=== PATIENT | female | born 1970 | race Caucasian/White ===

== ENCOUNTER → 2017-08-04 | Outpatient (CLI) | payer OTHER ==
--- NOTE | 2017-08-04 12:45 | Diagnostic Imaging Report ---
INDICATION: Pelvic pain. TECHNIQUE: Multiple real-time grayscale images were obtained over the pelvis in various projections both transabdominally and endovaginally. FINDINGS: The uterus measures 5.5 x 3.8 x 2.6 cm. Endometrial thickness is 3 mm. There are no myometrial or endometrial masses. Neither ovary is visualized. There are no adnexal masses. There is no free pelvic fluid. IMPRESSION: Unremarkable pelvic ultrasound. Neither ovary is visualized. Dictated by: Dictated on workstation # [id number]
== END ==
LOC: RAD 09:37
PROVIDERS: ATTEND Nurse Practitioner Family
DX: R10.2 Pelvic and perineal pain (principal)
CPT/HCPCS: 76830; 76856

== ENCOUNTER → 2017-08-12 | Outpatient (CLI) | payer OTHER ==
--- NOTE | 2017-08-12 14:16 | Diagnostic Imaging Report ---
PROCEDURE: CT abdomen and pelvis without contrast. TECHNIQUE: Multiple contiguous axial images were obtained through the abdomen and pelvis without the use of intravenous contrast. INDICATION: Right back pain for several months, now with radiation to the front. CORRELATION STUDY: None. FINDINGS: LOWER THORAX: Clear. LIVER: 2.3 cm cyst in the anterior left lobe of the liver is slightly bigger from prior examination. An additional 14 mm low-density lesion centrally in the left lobe of the liver, slightly more prominent from prior study. Additional 7 mm indeterminate low-density lesion at the central aspect of the left lobe of the liver may be slight more prominent from prior study as well. Additional 6 mm low-density lesion posteriorly in the right lobe of the liver is present. Remainder of the liver demonstrates slight low attenuation, may be reflective of at least some degree of fatty infiltration. GALLBLADDER: Absent with clips in the fossa. SPLEEN: Unremarkable. PANCREAS: Unremarkable. ADRENAL GLANDS: Unremarkable. KIDNEYS: Normal configuration. No calcification or obstruction. ABDOMINAL AORTA: Unremarkable, nonaneurysmal. No pathologically enlarged central retroperitoneal lymph nodes. GASTROINTESTINAL TRACT: There are a few noninflamed colonic diverticula. Normal appendix sits inseparable from the distal small bowel and the right lower quadrant appears unremarkable but limited in evaluation. No abdominal ascites or free air. URINARY BLADDER: Relatively decompressed. REPRODUCTIVE: Uterus and adnexa appearing unremarkable. OSSEOUS STRUCTURES: No acute abnormality. IMPRESSION: 1. Negative for acute abnormality of the abdomen or pelvis. 2. Several low-density lesions within the liver. While some of these appear to represent probable simple cysts, some of these are not definitively characterized and were visualized on prior limited imaging through the liver on prior CT chest examination. Therefore, the possibility of underlying non benign hepatic lesion is difficult to exclude on this noncontrast study. Consideration for post contrast CT imaging with hepatic protocol recommended. 3. Cholecystectomy. Dictated by: Dictated on workstation # [id number]
== END ==
LOC: RAD 12:34
PROVIDERS: ATTEND Family Medicine
DX: K76.9 Liver disease, unspecified (principal); M54.89 Other dorsalgia; Z90.49 Acquired absence of other specified parts of digestive tract
CPT/HCPCS: 74176

== ENCOUNTER → 2017-08-19 | Outpatient (CLI) | payer OTHER ==
[~2017-08-19] MED LIST: CATHETER FLUSH 10 ML SYR IV PRN; IOHEXOL 350 MG/ML 100 ML (OMNIPAQUE 350) VIAL IV ONE; NS 100 ML (IVPB) BAG IV ONE
--- NOTE | 2017-08-19 14:25 | Diagnostic Imaging Report ---
PROCEDURE: CT chest without contrast. TECHNIQUE: Multiple contiguous axial images were obtained through the chest without the use of intravenous contrast. INDICATION: Followup pulmonary mass. Comparison is made with prior CT chest from 12/06/2015. No axillary lymphadenopathy is seen. Calcified lymph nodes in the AP window appear stable and consistent with prior granulomatous disease. There are calcified lymph nodes in left hilum as well, stable. No pericardial or pleural fluid is identified. Small area of nodularity along the major fissure on the left appears stable. The area of parenchymal nodularity with associated calcifications in the lingula appears stable. No new parenchymal abnormality is seen. The upper abdomen demonstrates multiple hepatic cysts. The dominant cyst anteriorly has increased in size measuring 2.2 cm compared with 1.7 cm. IMPRESSION: Overall stable CT of the chest when compared with examination from 12/06/2015 with the exception of a slightly enlarging cyst in the liver. Dictated by: Dictated on workstation # [id number]
--- NOTE | 2017-08-19 15:23 | Diagnostic Imaging Report ---
PROCEDURE: CT abdomen with and without contrast. TECHNIQUE: Multiple contiguous axial CT images of the abdomen were obtained prior to and after intravenous administration of iodinated contrast. INDICATION: Abdominal discomfort and right lower abdominal pain. COMPARISON: Comparison is made with prior CT from 08/12/2017. FINDINGS: There is generalized low density throughout the liver, consistent with hepatic steatosis. Well-defined low-density lesions within the liver are again noted, largest in segment IVB measuring 2.2 cm. All liver lesions do demonstrate water density and are suggestive of cysts. No abnormal enhancement is identified. The gallbladder is surgically absent. The pancreas and spleen are unremarkable. No adrenal mass is detected. The kidneys are unremarkable. The aorta is nonaneurysmal. No central retroperitoneal or mesenteric lymphadenopathy is seen. There is no ascites. The visualized bowel loops are normal in caliber. IMPRESSION: 1. Hepatic steatosis. 2. Findings suggestive of hepatic cysts. The study is otherwise unremarkable. Dictated by: Dictated on workstation # [id number]
== END ==
LOC: RAD 13:41
PROVIDERS: ATTEND Family Medicine
DX: K76.0 Fatty (change of) liver, not elsewhere classified (principal); R91.8 Other nonspecific abnormal finding of lung field
CPT/HCPCS: 71250; 74170

== ENCOUNTER → 2017-10-22 | Outpatient (CLI) | payer OTHER ==
--- NOTE | 2017-10-22 17:17 | Diagnostic Imaging Report ---
INDICATION: Routine screening. No prior mammograms are available for comparison. This is a baseline study. The current study was also evaluated with a Computer Aided Detection (CAD) system. FINDINGS: Scattered fibroglandular densities are identified bilaterally. No dominant mass or malignant-appearing microcalcifications are seen. The axillae are unremarkable. IMPRESSION: No mammographic features suspicious for malignancy are identified. ACR BI-RADS Category 1: Negative. Result letter will be mailed to the patient. Note: At least 10% of breast cancer is not imaged by mammography. Dictated by: Dictated on workstation # [id number]
== END ==
LOC: RAD 14:05
PROVIDERS: ATTEND Family Medicine
DX: Z12.31 Encounter for screening mammogram for malignant neoplasm of breast (principal)
CPT/HCPCS: 77067

== ENCOUNTER 2017-12-28 06:23 | Outpatient (CLI) | payer OTHER ==
[~2017-12-28] VITALS: Ht 157.5 cm; Wt 61.2 kg
[2017-12-28] MEDS ORDERED: METO-387 PO (15:15)
== END 2017-12-28 15:16 ==
LOC: PREOP 06:23
PROVIDERS: ATTEND Surgery
DX: Z01.818 Encounter for other preprocedural examination (principal); K52.9 Noninfective gastroenteritis and colitis, unspecified

== ENCOUNTER 2018-01-03 09:53 | Day surgery (SDC) | payer OTHER ==
[~2018-01-03] VITALS: Ht 157.5 cm; Wt 61.2 kg
[~2018-01-03 09:53] MED LIST changes: -CATHETER FLUSH 10 ML SYR IV PRN; -IOHEXOL 350 MG/ML 100 ML (OMNIPAQUE 350) VIAL IV ONE; +METO-387 PO; -NS 100 ML (IVPB) BAG IV ONE
--- OUTSIDE RECORDS SUMMARY | 2018-01-03 10:00 | XMS REPORT | Continuity of Care Document ---
Demographics Preferred Language Unknown Marital Status Unknown Jain Affiliation Unknown Race Unknown Ethnic Group Unknown Author Author [facility] Address Unknown Phone Unavailable Allergies Active Description Code Type Severity Reaction Onset Reported/Identified Relationship to Patient Clinical Status Yes No Allergy Information Available [id number] Drug Allergy Unknown N/A 2014 Yes No Known Drug Allergies [id number] Drug Allergy Unknown N/A 12/28/2017 Medications There is no data. Problems Date Dx Coded Attending Type Code Diagnosis Diagnosed By 01/02/2009 386.00 MENIERE'S DISEASE UNSPECIFIED 01/02/2009 465.9 Acute Upper Respiratory Infections Of Unspecified Site 01/02/2009 794.6 NONSPECIFIC ABNORMAL RESULTS OF OTHER ENDOCRINE FUNCTION STUDY 09/28/2009 461.9 Sinusitis Acute 12/10/2011 780.79 OTHER MALAISE AND FATIGUE 12/23/2011 780.52 INSOMNIA UNSPECIFIED 12/23/2011 784.0 HEADACHE 07/23/2014 Ot 786.59 07/23/2014 Ot 041.81 07/23/2014 Ot 786.2 07/23/2014 Ot 786.05 07/23/2014 Ot 780.4 07/23/2014 Ot 784.0 07/23/2014 Ot 784.59 08/27/2014 RUTHY TOLENTINO MD Ot 228.02 08/27/2014 RUTHY TOLENTINO MD Ot 784.0 08/30/2014 Ot 786.59 08/30/2014 Ot 041.81 08/30/2014 Ot 786.2 08/30/2014 Ot 786.05 08/30/2014 Ot 780.4 08/30/2014 Ot 784.0 08/30/2014 Ot 784.59 08/30/2014 RUTHY TOLENTINO MD Ot 228.02 08/30/2014 RUTHY TOLENTINO MD Ot 784.0 03/26/2015 Ot 786.59 03/26/2015 Ot 041.81 03/26/2015 Ot 786.2 03/26/2015 Ot 786.05 03/26/2015 Ot 780.4 03/26/2015 Ot 784.0 03/26/2015 Ot 784.59 03/26/2015 RUTHY TOLENTINO MD Ot 228.02 03/26/2015 RAJAN MCGRAW, RUTHY Selby Ot 784.0 03/26/2015 RAJAN MCGRAW, RUTHY Selby Ot 228.02 03/26/2015 RAJAN MCGRAW, RUTHY Bal Ot 784.0 04/23/2015 RUTHY TOLENTINO MD Ot 228.02 04/23/2015 RUTHY TOLENTINO MD Ot 784.0 08/13/2015 RUTHY TOLENTINO MD Ot 228.02 08/13/2015 RUTHY TOLENTINO MD Ot 784.0 09/04/2015 RUTHY TOLENTINO MD Ot 228.02 09/04/2015 RUTHY TOLENTINO MD Ot 784.0 10/14/2015 Ot 041.81 10/14/2015 Ot 786.2 10/14/2015 Ot 786.05 10/14/2015 Ot 780.4 10/14/2015 Ot 784.0 10/14/2015 Ot 784.59 10/14/2015 RUTHY TOLENTINO MD Ot 228.02 10/14/2015 RUTHY TOLENTINO MD Ot 784.0 10/28/2015 Ot 041.81 10/28/2015 Ot 786.2 10/28/2015 Ot 786.05 10/28/2015 Ot 780.4 10/28/2015 Ot 784.0 10/28/2015 Ot 784.59 10/28/2015 RUTHY TOLENTINO MD Ot 228.02 10/28/2015 RUTHY TOLENTINO MD Ot 784.0 10/29/2015 JAY JAY CHAPMAN MD Ot R09.89 12/10/2015 JIGAR MORALES DO Ot R91.8 OTHER NONSPECIFIC ABNORMAL FINDING OF MARIAN 12/11/2015 JAY JAY CHAPMAN MD Ot R09.89 OTH SYMPTOMS AND SIGNS INVOLVING THE CIR 07/29/2017 Ot 786.05 SHORTNESS OF BREATH 07/29/2017 Ot 780.4 DIZZINESS AND GIDDINESS 07/29/2017 Ot 784.0 HEADACHE 07/29/2017 Ot 784.59 OTHER SPEECH DISTURBANCE 07/29/2017 RUTHY TOLENTINO MD Ot 228.02 HEMANGIOMA INTRACRANIAL 07/29/2017 RUTHY TOLENTINO MD Ot 784.0 HEADACHE 07/29/2017 ARI MCGRAW, JAY JAY P Ot R09.89 OTH SYMPTOMS AND SIGNS INVOLVING THE CIR 07/29/2017 ORENDER DO, JIGAR S Ot R91.8 OTHER NONSPECIFIC ABNORMAL FINDING OF MARIAN 08/19/2017 Ot 786.05 SHORTNESS OF BREATH 08/19/2017 Ot 780.4 DIZZINESS AND GIDDINESS 08/19/2017 Ot 784.0 HEADACHE 08/19/2017 Ot 784.59 OTHER SPEECH DISTURBANCE 08/19/2017 RAJAN MCGRAW, RUTHY Selby Ot 228.02 HEMANGIOMA INTRACRANIAL 08/19/2017 RUTHY TOLENTINO MD Ot 784.0 HEADACHE 08/19/2017 ARI MCGRAW, JAY JAY P Ot R09.89 OTH SYMPTOMS AND SIGNS INVOLVING THE CIR 08/19/2017 ORENDER DO, JIGAR S Ot R91.8 OTHER NONSPECIFIC ABNORMAL FINDING OF MARIAN 08/19/2017 ZAHIRA PITT R FREIGHT [employer] Ot R10.2 PELVIC AND PERINEAL PAIN 08/19/2017 ORENDER DO, JIGAR S Ot K76.9 LIVER DISEASE, UNSPECIFIED 08/19/2017 ORENDER DO, JIGAR S Ot M54.89 OTHER DORSALGIA 08/19/2017 ORENDER DO, JIGAR S Ot Z90.49 ACQUIRED ABSENCE OF OTHER SPECIFIED PART 09/17/2017 ORENDER DO, JIGAR S Ot K76.0 FATTY (CHANGE OF) LIVER, NOT ELSEWHERE C 09/17/2017 ORENDER DO, JIGAR S Ot R91.8 OTHER NONSPECIFIC ABNORMAL FINDING OF MARIAN 10/13/2017 ZAHIRA PITT R [employer]REIGHT [employer] Ot R10.2 PELVIC AND PERINEAL PAIN 10/13/2017 ORENDER DO, JIGAR S Ot K76.9 LIVER DISEASE, UNSPECIFIED 10/13/2017 ORENDER DO, JIGAR S Ot M54.89 OTHER DORSALGIA 10/13/2017 ORENDER DO, JIGAR S Ot Z90.49 ACQUIRED ABSENCE OF OTHER SPECIFIED PART 10/14/2017 ZAHIRA PITT R FREIGHT [employer] Ot R10.2 PELVIC AND PERINEAL PAIN 10/14/2017 ORENDER DO, JIGAR S Ot K76.9 LIVER DISEASE, UNSPECIFIED 10/14/2017 ORENDER DO, JIGAR S Ot M54.89 OTHER DORSALGIA 10/14/2017 ORENDER DO, JIGAR S Ot Z90.49 ACQUIRED ABSENCE OF OTHER SPECIFIED PART 10/15/2017 YOANDY, ZAHIRA R FREIGHT [employer]TER Ot R10.2 PELVIC AND PERINEAL PAIN 10/15/2017 ORENDER DO, JIGAR S Ot K76.9 LIVER DISEASE, UNSPECIFIED 10/15/2017 ORENDER DO, JIGAR S Ot M54.89 OTHER DORSALGIA 10/15/2017 ORENDER DO, JIGAR S Ot Z90.49 ACQUIRED ABSENCE OF OTHER SPECIFIED PART 10/22/2017 Ot 780.4 DIZZINESS AND GIDDINESS 10/22/2017 Ot 784.0 HEADACHE 10/22/2017 Ot 784.59 OTHER SPEECH DISTURBANCE 10/22/2017 RAJAN MCGRAW, RUTHY Sleby Ot 228.02 HEMANGIOMA INTRACRANIAL 10/22/2017 RAJAN MCGRAW, RUTHY Selby Ot 784.0 HEADACHE 10/22/2017 ARI MCGRAW, JAY JAY Zhao Ot R09.89 OTH SYMPTOMS AND SIGNS INVOLVING THE CIR 10/22/2017 ORENDER DO, JIGAR S Ot R91.8 OTHER NONSPECIFIC ABNORMAL FINDING OF MARIAN 10/22/2017 ZAHIRA PITT [employer]REIGHT [employer] Ot R10.2 PELVIC AND PERINEAL PAIN 10/22/2017 ORENDER DO, JIGAR S Ot K76.9 LIVER DISEASE, UNSPECIFIED 10/22/2017 ORENDER DO, JIGAR S Ot M54.89 OTHER DORSALGIA 10/22/2017 ORENDER DO, JIGAR S Ot Z90.49 ACQUIRED ABSENCE OF OTHER SPECIFIED PART 10/22/2017 ORENDER DO, JIGAR S Ot K76.0 FATTY (CHANGE OF) LIVER, NOT ELSEWHERE C 10/22/2017 ORENDER DO, JIGAR S Ot R91.8 OTHER NONSPECIFIC ABNORMAL FINDING OF MARIAN 10/25/2017 ORENDER DO, JIGAR S Ot Z12.31 ENCNTR SCREEN MAMMOGRAM FOR MALIGNANT NE 12/17/2017 ORENDER DO, JIGAR S Ot Z12.31 ENCNTR SCREEN MAMMOGRAM FOR MALIGNANT NE 12/28/2017 SOFIYA MCGRAW, TIM Selby Ot K52.9 NONINFECTIVE GASTROENTERITIS AND COLITIS 12/28/2017 SOFIYA MCGRAW, TIM Selby Ot Z01.818 ENCOUNTER FOR OTHER PREPROCEDURAL EXAMIN 12/29/2017 TIM ARRIAZA MD Ot K52.9 NONINFECTIVE GASTROENTERITIS AND COLITIS 12/29/2017 TIM ARRIAZA MD Ot Z01.818 ENCOUNTER FOR OTHER PREPROCEDURAL EXAMIN 12/30/2017 JIGAR MORALES DO Ot Z12.31 ENCNTR SCREEN MAMMOGRAM FOR MALIGNANT NE Procedures There is no data. Results There is no data. Encounters ACCT No. Visit Date/Time Discharge Status Pt. Type Provider Facility Loc./Unit Complaint [id number] 12/23/2011 09:54:00 12/23/2011 23:59:59 CLS Outpatient [id number] 09/09/2012 08:12:49 RECURRING [id number] 08/03/2014 09:24:00 ACT Document Registration 09/201710/12/2017 00:00:22 10/12/2017 23:59:59 CLS Outpatient Jigar Morales. [id number] 12/28/2017 06:23:00 12/28/2017 15:16:00 DIS Outpatient TIM ARRIAZA MD [facility] PREOP COLONOSCOPY [id number] 10/22/2017 14:05:00 10/22/2017 23:59:59 CLS Outpatient JIGAR MORALES DO S [facility] RAD SCREENING [id number] 08/19/2017 13:41:00 08/19/2017 23:59:59 CLS Outpatient JIGAR MORALES DO S [facility] RAD LIVER LESIONS [id number] 08/12/2017 12:34:00 08/12/2017 23:59:59 CLS Outpatient JIGAR MORALES DO S [facility] RAD ABD PAIN [id number] 08/04/2017 09:37:00 08/04/2017 23:59:59 CLS Outpatient ZAHIRA PITT FREIGHT [employer] [facility] RAD ABDOMINAL PELVIC PAIN [id number] 12/06/2015 08:30:00 12/06/2015 23:59:59 CLS Outpatient JIGAR MORALES DO S [facility] RAD R/L PULMONARY NODULES [id number] 10/28/2015 11:05:00 10/28/2015 23:59:59 CLS Outpatient ARI MCGRAW, JAY JAY Zhao [facility] RAD GLOBIS SENSATION [id number] 08/03/2014 09:23:00 08/03/2014 23:59:59 CLS Outpatient RAJAN MCGRAW, RUTHY Selby [facility] RAD HEADACHES [id number] 03/28/2013 15:19:00 03/28/2013 23:59:59 CLS Outpatient [id number] 01/03/2018 12:00:00 PEN Preadmit SOFIYA MCGRAW, TIM Sleby [facility] ENDO CHRONIC DIARRHEA [id number] 09/21/2012 08:44:00 Document Registration [id number] 03/28/2012 07:57:00 Document Registration [id number] 12/30/2011 13:52:00 Document Registration [id number] 03/26/2010 10:19:00 Document Registration [id number] 04/29/2017 16:16:51 04/29/2017 23:59:59 CLS Outpatient
[2018-01-03] MEDS ORDERED: NS IV 500 ML 500 ML IV PRN (10:03)
[2018-01-03 10:25] VITALS: BP 151/97
[2018-01-03] MEDS ORDERED: NS IV 500 ML 500 ML ONE (10:35)
--- NOTE | 2018-01-03 10:44 | Conscious Sedation/ASA ---
Conscious Sedation Pre-Proced Time Reviewed: 10:44 ASA Class: 2 Airway Mallampati Classification: ([place] appropriate class) I. II. III, IV Lungs Heart ASA score ASA 1: a normal healthy patient ASA 2: a patient with a mild systemic disease (mid diabetes, controlled hypertension, obesity ASA 3: a patient with a severe systemic disease that limits activity (angina , COPD, prior Myocardial infarction) ASA 4: a patient with an incapacitating disease that is a constant threat to life (CHF, renal failure) ASA 5: a moribund patient not expected to survive 24 hrs. (ruptured aneurysm) ASA 6: a declared brain patient whose organs are being harvested. For emergent operations, add the letter E after the classification Grade 1 Sedation Plan: Discussed options with patient/fam Note The patient is an appropriate candidate to undergo the planned procedure, sedation, and anesthesia. The patient immediately re-assessed prior to indication. TIM ARRIAZA MD Jan 03, 2018 10:44
--- NOTE | 2018-01-03 10:44 | History & Physicial ---
History of Present Illness History of Present Illness Reason for visit/HPI to undergo colonoscopy regarding chronic diarrhea Date of Admission 01/03/18 Date Seen by Provider: Jan 03, 2018 Time Seen by Provider: 10:42 I consulted on this patient on 01/03/18 10:41 Attending Physician Tim Gregory MD Admitting Physician Baliee Morales DO Consult Allergies and Home Medications Allergies Coded Allergies: No Known Drug Allergies (Unverified , 12/28/17) Home Medications Metoprolol Succinate 25 Mg Tab.er.24h, 25 MG PO DAILY, (Reported) Patient Home Medication List Home Medication List Reviewed: Yes Past Lpuqfoe-Niieoh-Razdmm Hx Patient Social History Marrital Status: Employed/Student: employed Recent Foreign Travel: No Contact w/other who traveled: No Recent Hopitalizations: No Seasonal Allergies Seasonal Allergies: No Surgeries Yes Gallbladder, Tonsillectomy Respiratory No Cardiovascular Yes Heart Murmur, Hypertension Neurological No Genitourinary No Gastrointestinal Yes Chronic Diarrhea Musculoskeletal No Endocrine History of Endocrine Disorders: No Psychosocial History of Psychiatric Problem: No Constitutional: no symptoms reported EENTM: no symptoms reported Respiratory: no symptoms reported Cardiovascular: no symptoms reported Gastrointestinal: see HPI Genitourinary: no symptoms reported Musculoskeletal: no symptoms reported Skin: no symptoms reported Psychiatric/Neurological: No Symptoms Reported Physical Exam Vital Signs Capillary Refill : General Appearance: No Apparent Distress Neck: Normal Inspection Respiratory: Lungs Clear Cardiovascular: Regular Rate, Rhythm Gastrointestinal: Non Tender, Soft Rectal: Deferred Extremity: Normal Inspection Neurologic/Psychiatric: Alert, Oriented x3 Skin: Warm/Dry Assessment/Plan Assessment and Plan lady with chronic diarrhea. No family history of colon cancer. For colonoscopy Admission Diagnosis Admission Status: Other (Outpt Proc) TIM GREGORY MD Jan 03, 2018 10:44
[2018-01-03] MEDS ORDERED: fentaNYL INJECTION 100 MCG/2 ML AMP ONE ×2 (10:56→11:12)
[2018-01-03] MEDS ORDERED: MIDAZOLAM 2 MG/2 ML (VERSED) VIAL ONE ×3 (10:56)
[2018-01-03] MEDS: fentaNYL INJECTION 100 MCG/2 ML AMP IVP PRN ×4 (11:03→11:17)
[2018-01-03] MEDS: MIDAZOLAM 2 MG/2 ML (VERSED) VIAL IVP PRN ×3 (11:05→11:15)
--- NOTE | 2018-01-03 11:24 | Endo Procedure Record ---
Endo Procedure Report Date of Procedure Last Colonoscopy: Yes Jan 03, 2018 Surgeon (s) TIM ARRIAZA MD Post Procedure/Op Diagnosis normal colonoscopy Procedure Performed colonoscopy to cecum Description of Procedure Anesthesia Type: Conscious Sedation Specimen(s) collected/removed no specimen Description of the Procedure Indication for the procedure: This lady came in for colonoscopy to evaluate long -standing diarrhea. Informed consent was obtained after reviewing the procedure in detail. Description of procedure: She was placed in left lateral decubitus position and her vital signs were monitored. Conscious sedation was achieved using Versed and fentanyl. Digital rectal examination was unremarkable. The colonoscope was then introduced into the rectum and advanced all the way up to the cecum The scope was then withdrawn slowly and the mucosa examined in a systematic fashion. There was no abnormality She tolerated the procedure well and was taken back to the nursing area in a stable condition. Impression: Chronic diarrhea. Normal colonoscopy. No family history. Recommend screening colonoscopy in 10 years. Copy Copies To 1: JIGAR RANGEL XAVIER M MD Jan 03, 2018 11:24
--- NOTE | 2018-01-03 11:25 | Discharge Inst-Simple/Standard ---
Discharge Inst-Standard Discharge Medications New, Converted or Re-Newed RX: Other Patient Instructions/Follow Up Plan of Care/Instructions/FU: screening colonoscopy in 10 years Activity as Tolerated: Yes Discharge Diet: No Restrictions TIM ARRIAZA MD Jan 03, 2018 11:25
[2018-01-03 11:50] VITALS: BP 122/88
[2018-01-03 12:15] VITALS: BP 124/88
[2018-01-03 12:17] VITALS: BP 124/88
== END 2018-01-03 12:22 | disposition home or self-care (01) ==
LOC: ENDO 09:53
PROVIDERS: ATTEND Surgery
DX: R19.7 Diarrhea, unspecified (principal); I10 Essential (primary) hypertension
CPT/HCPCS: 84703

== ENCOUNTER 2018-01-03 18:46 | Emergency (ER) | payer OTHER ==
[~2018-01-03] VITALS: Ht 157.5 cm; Wt 65.8 kg
[2018-01-03 19:30] VITALS: BP 140/80
[2018-01-03] MEDS ORDERED: ONDANSETRON 4 MG/2 ML (SDV) Z0FRAN ONE (19:44)
[2018-01-03] MEDS ORDERED: ONDANSETRON 4 MG/2 ML (SDV) Z0FRAN IVP ONE (19:45)
--- NOTE | 2018-01-03 19:58 | ED Abdominal Pain ---
General Chief Complaint: Abdominal/GI Problems Stated Complaint: HEADACHE AND VOMITING AFTER COLONOSCOPY TODAY Source of Information: Patient Exam Limitations: No Limitations History of Present Illness Date Seen by Provider: Jan 03, 2018 Time Seen by Provider: 19:56 Initial Comments to ER per private vehicle with reports of nausea vomiting and a headache after colonoscopy done today here in the outpatient setting by Dr. Gregory. She had a similar episode after her last colonoscopy involving nausea and vomiting. However, it wasn't this bad.sshe denies any abdominal pain fevers or chills. Timing/Duration: 4-6 Hours Severity/Quality: Moderate Location: Generalized Abdomen Radiation: No Radiation Activities at Onset: None Allergies and Home Medications Allergies Coded Allergies: No Known Drug Allergies (Unverified , 12/28/17) Home Medications Metoprolol Succinate 25 Mg Tab.er.24h, 25 MG PO DAILY, (Reported) Patient Home Medication List Home Medication List Reviewed: Yes Review of Systems Constitutional: see HPI EENTM: No Symptoms Reported Respiratory: No Symptoms Reported Cardiovascular: No Symptoms Reported Gastrointestinal: See HPI; Denies Abdominal Pain; Nausea, Vomiting Genitourinary: No Symptoms Reported Musculoskeletal: no symptoms reported Skin: no symptoms reported Psychiatric/Neurological: No Symptoms Reported Endocrine: No Symptoms Reported Hematologic/Lymphatic: No Symptoms Reported Past Uctxxtr-Xlvibn-Szdtel Hx Patient Social History Recent Foreign Travel: No Contact w/Someone Who Travel: No Recent Hopitalizations: No Seasonal Allergies Seasonal Allergies: No Past Medical History Surgeries: Yes Gallbladder, Tonsillectomy Respiratory: No Cardiac: Yes Heart Murmur, Hypertension Neurological: No Genitourinary: No Gastrointestinal: Yes Chronic Diarrhea Musculoskeletal: No Endocrine: No Psychosocial: No Physical Exam Vital Signs Vital Signs - First Documented 01/03/18 19:30 Temp 97.2 Pulse 102 Resp 20 B/P (MAP) 140/80 (100) Pulse Ox 98 Capillary Refill : General Appearance: WD/WN, no apparent distress HEENT: PERRL/EOMI, normal ENT inspection Neck: non-tender, full range of motion Respiratory: no respiratory distress, no accessory muscle use Cardiovascular: regular rate, rhythm, no murmur Gastrointestinal: normal bowel sounds, non tender, soft, other (no tenderness to palpation. Very pleasant. The time of my arrival to the room she already received IV Zofran and states that she is already feeling much better.) Extremities: normal range of motion, non-tender Neurologic/Psychiatric: alert, normal mood/affect, oriented x 3 Skin: normal color, warm/dry Progress/Results/Core Measures Results/Orders Lab Results Laboratory Tests Test 01/03/18 19:40 Range/Units White Blood Count 9.0 4.3-11.0 10^3/uL Red Blood Count 5.05 4.35-5.85 10^6/uL Hemoglobin 15.5 11.5-16.0 G/DL Hematocrit 44 35-52 % Mean Corpuscular Volume 88 80-99 FL Mean Corpuscular Hemoglobin 31 25-34 PG Mean Corpuscular Hemoglobin Concent 35 32-36 G/DL Red Cell Distribution Width 13.4 10.0-14.5 % Platelet Count 244 130-400 10^3/uL Mean Platelet Volume 10.4 7.4-10.4 FL Neutrophils (%) (Auto) 85 H 42-75 % Lymphocytes (%) (Auto) 12 12-44 % Monocytes (%) (Auto) 2 0-12 % Eosinophils (%) (Auto) 0 0-10 % Basophils (%) (Auto) 0 0-10 % Neutrophils # (Auto) 7.7 1.8-7.8 X 10^3 Lymphocytes # (Auto) 1.1 1.0-4.0 X 10^3 Monocytes # (Auto) 0.2 0.0-1.0 X 10^3 Eosinophils # (Auto) 0.0 0.0-0.3 10^3/uL Basophils # (Auto) 0.0 0.0-0.1 10^3/uL Sodium Level 142 135-145 MMOL/L Potassium Level 3.9 3.6-5.0 MMOL/L Chloride Level 105 98-107 MMOL/L Carbon Dioxide Level 22 21-32 MMOL/L Anion Gap 15 H 5-14 MMOL/L Blood Urea Nitrogen 16 7-18 MG/DL Creatinine 0.79 0.60-1.30 MG/DL Estimat Glomerular Filtration Rate > 60 BUN/Creatinine Ratio 20 Glucose Level 137 H 70-105 MG/DL Calcium Level 10.1 8.5-10.1 MG/DL My Orders Orders - FLAKITO ONOFRE APRN Cbc With Automated Diff (01/03/18 19:52) Basic Metabolic Panel (01/03/18 19:52) Ns Iv 500 Ml (Sodium Chloride 0.9%) (01/03/18 20:00) Rx-Ondansetron Po (Rx-Zofran Po) (01/03/18 20:11) Medications Given in ED Current Medications Medications Dose Ordered Sig/Jeffrey Route Start Time Stop Time Status Last Admin Dose Admin Ondansetron HCl 4 mg ONCE ONCE IVP 01/03/18 19:45 01/03/18 19:46 DC 01/03/18 19:45 4 MG Vital Signs/I&O 01/03/18 19:30 Temp 97.2 Pulse 102 Resp 20 B/P (MAP) 140/80 (100) Pulse Ox 98 Departure Impression Primary Impression: Nausea and vomiting Disposition: HOME, SELF-CARE Condition: Stable Departure-Patient Inst. Decision time for Depature: 19:58 Referrals: JIGAR RANGEL DO (PCP/Family) Primary Care Physician Patient Instructions: No Instuctions Given Copy Copies To 1: JIGAR RANGEL DO Copies To 2: TIM GREGORY MD, PETER J APRN Jan 03, 2018 19:58
[2018-01-03 20:00] LABS: BASOPHILS % (AUTO) 0 % (0-10); EOSINOPHILS % (AUTO) 0 % (0-10); HEMATOCRIT 44 % (35-52); HEMOGLOBIN 15.5 G/DL (11.5-16.0); LYMPHOCYTES # (AUTO) 1.1 X 10^3 (1.0-4.0); LYMPHOCYTES % (AUTO) 12 % (12-44); MEAN CORPUSCULAR HEMOGLOBIN 31 PG (25-34); MEAN CORPUSCULAR HGB CONC 35 G/DL (32-36); MEAN CORPUSCULAR VOLUME 88 FL (80-99); MEAN PLATELET VOLUME 10.4 FL (7.4-10.4); MONOCYTES # (AUTO) 0.2 X 10^3 (0.0-1.0); MONOCYTES % (AUTO) 2 % (0-12); NEUTROPHILS # (AUTO) 7.7 X 10^3 (1.8-7.8); NEUTROPHILS % (AUTO) 85 % (42-75); PLATELET COUNT 244 10^3/uL (130-400); RED BLOOD COUNT 5.05 10^6/uL (4.35-5.85); RED CELL DISTRIBUTION WIDTH 13.4 % (10.0-14.5)
[2018-01-03] MEDS ORDERED: NS IV 500 ML 500 ML IV SCH (20:00)
[2018-01-03 20:08] LABS: BUN/CREATININE RATIO 20; CALCIUM 10.1 MG/DL (8.5-10.1); CARBON DIOXIDE 22 MMOL/L (21-32); CHLORIDE 105 MMOL/L (98-107); CREATININE SERUM 0.79 MG/DL (0.60-1.30); GFR ESTIMATED > 60; GLUCOSE 137 MG/DL (70-105); POTASSIUM 3.9 MMOL/L (3.6-5.0); SODIUM 142 MMOL/L (135-145)
[2018-01-03] MEDS ORDERED: RX-ONDANSETRON 4 MG ODT (ZOFRAN) PPK #4 PO STA (20:11)
== END 2018-01-03 20:37 | disposition home or self-care (01) ==
LOC: EDUNIT# 18:46 → ER 18:47
DX: R11.2 Nausea with vomiting, unspecified (principal); I10 Essential (primary) hypertension; Z90.89 Acquired absence of other organs
CPT/HCPCS: 36415; 80048; 85025; 96374

== ENCOUNTER → 2018-08-04 | Outpatient (CLI) | payer OTHER ==
--- NOTE | 2018-08-04 10:20 | Diagnostic Imaging Report ---
INDICATION: Back pain after fall AP and lateral views of the thoracic spine shows normal alignment. There is a very slight anterior wedging of T5-T6 vertebral bodies. The other vertebral bodies appear normal. IMPRESSION: Suspected slight anterior wedging of T5 and T6 that could be from compression fractures. Recommend correlation with MRI if clinical findings suggest possibility of a compression fracture. Dictated by: Dictated on workstation # [id number]
--- NOTE | 2018-08-04 10:20 | Diagnostic Imaging Report ---
INDICATION: Injury from a fall. FINDINGS: AP and lateral views of the sacrum and coccyx does not show any fracture or dislocation. IMPRESSION: Negative sacrum and coccyx. Dictated by: Dictated on workstation # [id number]
== END ==
LOC: RAD 09:45
PROVIDERS: ATTEND Nurse Practitioner Family
DX: S39.92XA Unspecified injury of lower back, initial encounter (principal); M54.6 Pain in thoracic spine; W19.XXXA Unspecified fall, initial encounter
CPT/HCPCS: 72072; 72220

== ENCOUNTER → 2020-12-16 | Outpatient (CLI) | payer OTHER ==
[~2020-12-16] MED LIST changes: -METO-387 PO; +MTP25TSR PO
--- NOTE | 2020-12-16 08:41 | Diagnostic Imaging Report ---
INDICATION: Routine screening. Comparison is made with prior mammogram 10/22/2017. 2-D and 3-D bilateral screening mammography was performed with CAD. Scattered fibroglandular densities are identified bilaterally. The parenchymal pattern is stable. No mass or malignant appearing microcalcifications are seen. Axillae are unremarkable. IMPRESSION: BI-RADS Category 1 No mammographic features suspicious for malignancy are identified. ACR BI-RADS Category 1: Negative. Result letter will be mailed to the patient. Note: At least 10% of breast cancer is not imaged by mammography. Dictated by: Dictated on workstation # [id number]
== END ==
LOC: RAD 07:45
PROVIDERS: ATTEND Family Medicine
DX: Z12.31 Encounter for screening mammogram for malignant neoplasm of breast (principal)
CPT/HCPCS: 77063; 77067